=== PATIENT | female | born 1995 | race American Indian/Alaskan Native ===

== ENCOUNTER 2017-11-10 16:17 | Inpatient (IN) | payer MEDICAID ==
[2017-11-10] MEDS ORDERED: TRANSDERM-SCOP TD ONE (16:19)
[2017-11-10] MEDS ORDERED: ZOFRAN IV PRN (16:19)
[2017-11-10] MEDS ORDERED: D5LR 1,000 ML IV SCH (17:00)
[2017-11-10] MEDS: D5LR 1,000 ML IV SCH ×2 (18:37→20:29)
[2017-11-10] MEDS: PHENERGAN PR SCH ×2 (18:37→23:00)
[2017-11-10] MEDS: REGLAN IV SCH ×2 (18:37→23:53)
[2017-11-10 19:15] LABS: Bilirubin,Urine NEG (Negative); Blood,Urine NEG (Negative); Color,Urine Yellow (Yellow); Mucus,Urine 3+ /HPF
[2017-11-10 20:30] LABS: Basophils % (Auto) 0.1 % (0.0-1.8); Eosinophils # (Auto) 0.1 K/mm3 (0.0-0.4); Eosinophils % (Auto) 1.5 % (0.0-4.3); Hematocrit 38.2 % (30.3-42.9); Hemoglobin 12.4 gm/dl (10.1-14.3); Lymphocytes # (Auto) 2.2 K/mm3 (1.2-5.4); Lymphocytes % (Auto) 35.9 % (13.4-35.0); Mean Corpuscular HGB Conc 33 % (30-34); Mean Corpuscular Hemoglobin 27 pg (28-32); Mean Corpuscular Volume 82 fl (79-97); Monocytes # (Auto) 0.4 K/mm3 (0.0-0.8); Monocytes % (Auto) 6.6 % (0.0-7.3); Platelet Count 198 K/mm3 (140-440); Red Blood Count 4.68 M/mm3 (3.65-5.03); Red Cell Distribution Width 18.9 % (13.2-15.2)
[2017-11-10 20:47] LABS: BUN/Creatinine Ratio 10; Blood Urea Nitrogen 5 mg/dL (7-17); Calcium 9.4 mg/dL (8.4-10.2); Hemolysis Index 1
[2017-11-10 20:48] LABS: Lipase 23 units/L (13-60)
[2017-11-10 21:00] LABS: Hepatitis A Antibody IgM Non-Reactive (NonReactive); Hepatitis B Core IgM Non-Reactive (NonReactive); Hepatitis B Surface Antigen Non-Reactive (Negative); Hepatitis C Virus Antibody Non-Reactive (NonReactive)
[2017-11-11] MEDS ORDERED: D5LR W/KCL 20 MEQ 20 MEQ/1,000 ML BAG IV SCH (01:00)
[2017-11-11] MEDS: PHENERGAN PR SCH (05:00)
[2017-11-11] MEDS: REGLAN IV SCH (05:14)
--- NOTE | 2017-11-11 08:26 | Progress Note ---
Assessment and Plan A/P Hyperemesis gravidarum patient feels better today ( eating hamburgers last night) will switch from iv to po patient wants to go home reassess for discharge tonight or tomorrow Subjective - Subjective Date of service: 11/11/17 Principal diagnosis: hyperemesis graviadraum Patient reports: no new complaints, no loss of fluid, no vaginal bleeding, no contractions Objective - Vital Signs Vital Signs: Vital Signs - 12hr 11/10/17 11/11/17 20:40 00:14 Temperature 97.7 F 98.5 F Pulse Rate 85 83 Respiratory 18 18 Rate Blood Pressure 112/46 107/44 [Left] O2 Sat by Pulse 98 98 Oximetry - Exam Breasts: normal Cardiovascular: Regular rate, Normal S1 Lungs: Clear to auscultation, Normal air movement Abdomen: Present: normal appearance, soft, normal bowel sounds. Absent: distention, tenderness, guarding Vulva: both: normal Uterus: Present: normal, firm, fundal height below umbilicus. Absent: bogginess , tenderness Extremities: normal Deep Tendon Reflex Grade: Normal +2 - Labs Labs: Abnormal Labs 11/10/17 11/10/17 11/10/17 18:53 18:53 18:53 MCH 27 L RDW 18.9 H Lymph % (Auto) 35.9 H Potassium 3.3 L BUN 5 L Creatinine 0.5 L Glucose 117 H TSH 4.570 H Laboratory Results - last 24 hr 11/10/17 11/10/17 11/10/17 16:35 18:53 18:53 WBC 6.1 RBC 4.68 Hgb 12.4 Hct 38.2 MCV 82 MCH 27 L MCHC 33 RDW 18.9 H Plt Count 198 Lymph % (Auto) 35.9 H [place] % (Auto) 6.6 Eos % (Auto) 1.5 Baso % (Auto) 0.1 Lymph # 2.2 Leslie # 0.4 Eos # 0.1 Baso # 0.0 Seg Neutrophils % 55.9 Seg Neutrophils # 3.4 Sodium Potassium Chloride Carbon Dioxide Anion Gap BUN Creatinine Estimated GFR BUN/Creatinine Ratio Glucose Calcium Amylase 59 Lipase 23 TSH Urine Color Yellow Urine Turbidity Clear Urine pH 5.0 Ur Specific [place] 1.028 Urine Protein 30 mg/dl Urine Glucose (UA) Neg Urine Ketones Tr Urine Blood Neg Urine Nitrite Neg Urine Bilirubin Neg Urine Urobilinogen 2.0 Ur Leukocyte Esterase Neg Urine WBC (Auto) 2.0 Urine RBC (Auto) 1.0 U Epithel Cells (Auto) 3.0 Urine Mucus 3+ Hepatitis A IgM Ab Hep Bs Antigen Hep B Core IgM Ab Hepatitis C Antibody 11/10/17 11/10/17 11/10/17 18:53 18:53 18:53 WBC RBC Hgb Hct MCV MCH MCHC RDW Plt Count Lymph % (Auto) [place] % (Auto) Eos % (Auto) Baso % (Auto) Lymph # [place] # Eos # Baso # Seg Neutrophils % Seg Neutrophils # Sodium 139 Potassium 3.3 L Chloride 100.9 Carbon Dioxide 23 Anion Gap 18 BUN 5 L Creatinine 0.5 L Estimated GFR > 60 BUN/Creatinine Ratio 10 Glucose 117 H Calcium 9.4 Amylase Lipase TSH 4.570 H Urine Color Urine Turbidity Urine pH Ur Specific [place] Urine Protein Urine Glucose (UA) Urine Ketones Urine Blood Urine Nitrite Urine Bilirubin Urine Urobilinogen Ur Leukocyte Esterase Urine WBC (Auto) Urine RBC (Auto) U Epithel Cells (Auto) Urine Mucus Hepatitis A IgM Ab Non-reactive Hep Bs Antigen Non-reactive Hep B Core IgM Ab Non-reactive Hepatitis C Antibody Non-reactive
[2017-11-11] MEDS ORDERED: ZOFRAN ODT PO PRN (08:27)
[2017-11-11] MEDS ORDERED: PRENATAL VITAMIN PO SCH (10:00)
[2017-11-11] MEDS: PHENERGAN PO PRN ×2 (12:00→18:00)
[2017-11-11] MEDS: REGLAN PO PRN ×2 (12:00→18:00)
[2017-11-11 17:19] VITALS: BP 100/46
--- NOTE | 2017-11-11 18:51 | Discharge Summary ---
Providers - Providers Date of Admission: 11/10/17 16:49 Date of discharge: 11/11/17 Attending physician: ALEJANDRO RYDER MD Primary care physician: ALEJANDRO RYDER MD Hospitalization Reason for admission: other (Hyperemesis Gravidarum) Hospital course: Patient admitted for nausea and vomiting after 2 days if iv antiemetics switched to po , patient felt better. Patient able to tolerate her lunch andd dinner. d/c home to f/u in 2 weeks Condition at discharge: Good Disposition: [id number] TO HOME OR SELFCARE Plan - Provider Discharge Summary Activity: routine Diet: routine Instructions: routine Additional instructions: [] Smoking cessation referral if applicable(refer to patient education folder for contact #) [] Refer to [facility]'s [facility] Booklet Call your doctor immediately for: * Fever > 100.5 * Heavy vaginal bleeding ( >1 pad per hour) * Severe persistent headache * Shortness of breath * Reddened, hot, painful area to leg or breast * Drainage or odor from incision. * Keep incision clean and dry at all times and follow doctor's instructions regarding bathing/showering - Follow up plan Follow up: ALEJANDRO RYDER MD [Primary Care Provider] - 14 Days Forms: [facility] Discharge Summary, Discharge Signature Page
--- NOTE | 2017-11-11 20:20 | History and Physical Report ---
<ALEJANDRO RYDER - Last Filed: 11/11/17 20:19> History of Present Illness Date of examination: 11/11/17 Date of admission: 11/10/17 16:49 Chief complaint: nausea and vomiting Medications and Allergies Allergies Allergy/AdvReac Type Severity Reaction Status Date / Time No Known Allergies Allergy Unverified 11/10/17 16:19 Home Medications Medication Instructions Recorded Confirmed Last Taken Type No Known Home Medications [No 11/10/17 11/10/17 Unknown History Reported Home Medications] Active Meds: Active Medications Potassium Cl/Dextrose/Lact Ringer's (D5lr W/Kcl 20 Meq) 20 meq in 1,000 mls @ 125 mls/hr IV DIRECT DEVANG Last Admin: 11/11/17 00:58 Dose: 125 mls/hr Metoclopramide HCl (Reglan) 10 mg IV Q6H DEVANG Last Admin: 11/11/17 05:14 Dose: 10 mg Metoclopramide HCl (Reglan) 10 mg PO Q6H PRN PRN Reason: Nausea And Vomiting Last Admin: 11/11/17 18:00 Dose: 10 mg Multivitamins/Iron/Calcium ( Vitamin) 1 each PO QDAY [facility] Ondansetron HCl (Zofran) 4 mg IV Q6H PRN PRN Reason: N/V unrelieved by Reglan Ondansetron HCl (Zofran Odt) 8 mg PO Q8H PRN PRN Reason: Nausea And Vomiting Promethazine HCl (Phenergan) 25 mg VT Q6H DEVANG Last Admin: 11/11/17 05:00 Dose: Not Given Promethazine HCl (Phenergan) 25 mg PO Q6H PRN PRN Reason: Nausea And Vomiting Last Admin: 11/11/17 18:00 Dose: 25 mg - Vital Signs Vital signs: Vital Signs Temp Pulse Resp BP Pulse Ox 97.4 F L 85 18 102/61 100 11/10/17 17:21 11/10/17 17:21 11/10/17 17:21 11/10/17 17:21 11/10/17 17:21 Temp Pulse Resp BP Pulse Ox 98.5 F 74 18 100/46 98 11/11/17 16:45 11/11/17 16:45 11/11/17 16:45 11/11/17 16:45 11/11/17 00:14 Results Result Diagrams: 11/10/17 18:53 11/11/17 08:23 Abnormal lab results 11/10/17 11/10/17 11/10/17 Range/Units 18:53 18:53 18:53 MCH 27 L (28-32) pg RDW 18.9 H (13.2-15.2) % Lymph % (Auto) 35.9 H (13.4-35.0) % Potassium 3.3 L (3.6-5.0) mmol/L BUN 5 L (7-17) mg/dL Creatinine 0.5 L (0.7-1.2) mg/dL Glucose 117 H (65-100) mg/dL TSH 4.570 H (0.270-4.200) mlU/mL All other labs normal. <JAYDEN JO - Last Filed: 11/12/17 08:27> History of Present Illness Date of admission: 11/10/17 16:49 History of present illness: 22 yo @ 12 weeks gestation presented to office with c/o N/v x 24hrs. Tolerating regular diet. Voiced ate encinas this am. Ketone 5+ No weight loss. Taking Zofran currently. No previous treatment for c/o Past History Past Medical History: no pertinent history Review of Systems Constitutional: weight loss, fatigue, weakness, malaise - Vital Signs Vital signs: Vital Signs Temp Pulse Resp BP Pulse Ox 97.4 F L 85 18 102/61 100 11/10/17 17:21 11/10/17 17:21 11/10/17 17:21 11/10/17 17:21 11/10/17 17:21 Temp Pulse Resp BP Pulse Ox 98.5 F 74 18 100/46 98 11/11/17 16:45 11/11/17 16:45 11/11/17 16:45 11/11/17 16:45 11/11/17 00:14 - Obstetrical FHR comments: Doppler FHT in office 150 Results Result Diagrams: 11/10/17 18:53 11/11/17 08:23 All other labs normal. Assessment and Plan A: IUP at 12 weeks nausea and vomiting P: IV hydration
== END 2017-11-11 19:10 | disposition home or self-care (01) | DRG 781 ==
LOC: UNDOADMIN 16:17 → 3A 16:17 → OB 16:49
PROVIDERS: ADMIT Obstetrics & Gynecology; ATTEND Obstetrics & Gynecology
DX: O21.0 Mild hyperemesis gravidarum (principal); Z3A.12 12 weeks gestation of pregnancy
CPT/HCPCS: 36415; 80048; 80074; 81001; 82010; 82150; 83690; 84132; 84443; 85025; J2765; J7120; J7121; Q0169

== ENCOUNTER 2018-05-14 11:00 | Outpatient (CLI) | payer MEDICAID ==
[2018-05-14 12:25] LABS: Bacteria,Urine 1+ /HPF (Negative); Bilirubin,Urine NEG (Negative); Blood,Urine NEG (Negative); Color,Urine Yellow (Yellow); Mucus,Urine FEW /HPF; Protein,Urine <15 mg/dL mg/dL (Negative); Urobilinogen,Urine < 2.0 mg/dL (<2.0)
[2018-05-14 13:27] VITALS: BP 131/79
[2018-05-14 13:54] LABS: Hematocrit 38.6 % (30.3-42.9); Hemoglobin 13.1 gm/dl (10.1-14.3); Mean Corpuscular HGB Conc 34 % (30-34); Mean Corpuscular Volume 88 fl (79-97); Platelet Count 143 K/mm3 (140-440); Red Blood Count 4.41 M/mm3 (3.65-5.03)
[2018-05-14 14:15] LABS: Alanine Aminotransferase 12 units/L (7-56); Uric Acid 5.1 mg/dL (3.5-7.6)
== END 2018-05-14 14:24 | disposition home or self-care (01) ==
LOC: TRG 11:00
PROVIDERS: ATTEND Obstetrics & Gynecology
DX: O47.1 False labor at or after 37 completed weeks of gestation (principal); Z3A.39 39 weeks gestation of pregnancy; Z87.891 Personal history of nicotine dependence
CPT/HCPCS: 36415; 59025; 81001; 82565; 83615; 84450; 84460; 84550; 85027

== ENCOUNTER 2018-05-20 14:30 | Inpatient (IN) | payer MEDICAID ==
[2018-05-20 15:27] LABS: Bacteria,Urine 2+ /HPF (Negative); Bilirubin,Urine NEG (Negative); Blood,Urine LG (Negative); Color,Urine Yellow (Yellow); Protein,Urine <15 mg/dL mg/dL (Negative); Urobilinogen,Urine < 2.0 mg/dL (<2.0)
[2018-05-20 16:24] LABS: Hematocrit 36.9 % (30.3-42.9); Hemoglobin 12.3 gm/dl (10.1-14.3); Mean Corpuscular HGB Conc 33 % (30-34); Mean Corpuscular Volume 88 fl (79-97); Platelet Count 149 K/mm3 (140-440); Red Blood Count 4.17 M/mm3 (3.65-5.03); Red Cell Distribution Width 14.8 % (13.2-15.2)
[2018-05-20 16:41] LABS: Uric Acid 6.1 mg/dL (3.5-7.6)
[2018-05-20 17:03] LABS: Alanine Aminotransferase < 5 units/L (7-56)
[2018-05-20] MEDS ORDERED: TYLENOL PO ONE (17:29)
[2018-05-20] MEDS ORDERED: AMPICILLIN/NS 2 GM/100 ML 2 GM/100 ML BAG IV ONE (18:43)
[2018-05-20] MEDS ORDERED: CERVIDIL VG ONE (18:43)
[2018-05-20] MEDS ORDERED: XYLOCAINE 2% INFILTRATI ONE (18:43)
[2018-05-20] MEDS ORDERED: BRETHINE SUB-Q PRN (18:43)
[2018-05-20] MEDS ORDERED: BRETHINE IVP PRN (18:43)
[2018-05-20] MEDS ORDERED: ZOFRAN IV PRN (18:43)
[2018-05-20] MEDS ORDERED: SUBLIMAZE IV PRN (18:43)
[2018-05-20] MEDS ORDERED: MINERAL OIL PO PRN (18:43)
--- NOTE | 2018-05-20 18:43 | History and Physical Report ---
History of Present Illness Date of examination: 05/20/18 Chief complaint: Headaches History of present illness: Pt is a 23yo BF EDC 05/21/18; EGA 39 6/7 weeks presents to L&D complaining of headaches and blurred vision. BP 143/81. This is her 3rd presentation to Triage with complaints of elevated BP's. She was a late transfer to [facility] at 39 weeks from [facility]. records are not available. 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 Family/Genetic History: none Social history: no significant social history, single - Obstetrical History Expected Date of Delivery: 05/21/18 Actual Gestation: 40 Week(s) 1 Day(s) : 2 Medications and Allergies Allergies Allergy/AdvReac Type Severity Reaction Status Date / Time No Known Allergies Allergy Verified 05/06/18 11:42 Home Medications Medication Instructions Recorded Confirmed Last Taken Type Pnv No.95/Ferrous Fum/Folic AC 1 tab PO QDAY 05/20/18 05/20/18 05/19/18 10:00 History [ Vitamins Tablet] valACYclovir [Valtrex] 1 tab PO QDAY 05/20/18 05/20/18 05/19/18 10:00 History Review of Systems All systems: negative - Vital Signs Vital signs: Vital Signs Pulse BP Pulse Ox 107 H 143/81 99 05/20/18 15:04 05/20/18 15:04 05/20/18 15:04 Temp Pulse Resp BP Pulse Ox 85 154/85 98 05/20/18 18:15 05/20/18 18:08 05/20/18 18:15 - Physical Exam Breasts: Positive: deferred Cardiovascular: Regular rate Lungs: Positive: Clear to auscultation Abdomen: Positive: normal appearance Genitourinary (Female): Positive: normal external genitalia Uterus: Positive: enlarged Extremities: Positive: edema - Obstetrical FHR: category 1 Uterine Contraction Monitor Mode: External Cervical Dilatation: 1 (per nurse) Cervical Effacement Percentage: 50 (per nurse) station: -2 Uterine Contraction Pattern: Irregular Uterine Tone Measurement Phase: Contraction Uterine Contraction Intensity: Mild Results Result Diagrams: 05/20/18 16:10 05/20/18 16:10 Abnormal lab results 05/20/18 05/20/18 Range/Units 15:00 16:10 ALT < 5 L (7-56) units/L Lactate Dehydrogenase 242 H (91-180) units/L Urine WBC (Auto) 9.0 H (0.0-6.0) /HPF All other labs normal. Assessment and Plan - Patient Problems (1) 39 weeks gestation of Onset Date: 05/20/18 Current Visit: Yes Status: Acute Plan to address problem: A: IUP @ 39 6/7 weeks PIH Unknown GBS P: Admit to L&D for cervidil/pitocin induction of labor IV Hydralazine, possible IV Magnesium sulfate IV Ampicillin Obtain records (2) PIH ( induced hypertension) Onset Date: 05/20/18 Current Visit: Yes Status: Acute Qualifiers: Trimester: third trimester Qualified Code(s): O13.3 - Gestational [-induced] hypertension without significant proteinuria, third t rimester
[2018-05-20] MEDS ORDERED: APRESOLINE IV PRN (18:47)
[2018-05-20] MEDS ORDERED: PITOCin/NS 20 UNIT/1000ML DRIP 20 UNITS/1,000 ML BAG IV SCH (19:00)
[2018-05-20] MEDS ORDERED: PITOCin/NS 30 UNIT/500ML 30 UNITS/500 ML BAG IV SCH ×2 (19:00)
[2018-05-20] MEDS: LACTATED RINGERS 1,000 ML IV SCH (20:18)
[2018-05-20] MEDS: STADOL IV PRN (23:55)
[2018-05-21] MEDS: AMPICILLIN/NS 1 GM/50 ML 1 GM/50 ML BAG IV SCH ×3 (01:01→10:40)
[2018-05-21] MEDS: LACTATED RINGERS 1,000 ML IV SCH (03:39)
--- NOTE | 2018-05-21 11:15 | Progress Note ---
Assessment and Plan - Patient Problems (1) 39 weeks gestation of Onset Date: 05/20/18 Current Visit: Yes Status: Acute Plan to address problem: A: IUP @ 40 0/7 weeks PIH Unknown GBS P: Continue with cervidil/pitocin induction of labor IV Hydralazine, possible IV Magnesium sulfate IV Ampicillin Obtain records (2) PIH ( induced hypertension) Onset Date: 05/20/18 Current Visit: Yes Status: Acute Qualifiers: Trimester: third trimester Qualified Code(s): O13.3 - Gestational [-induced] hypertension without significant proteinuria, third trimester Subjective - Subjective Date of service: 05/21/18 Principal diagnosis: IUP @ 40 0/7 weeks; PIH Interval history: Pt is a 23yo BF EDC 05/21/18; EGA 40 0/7 weeks presented to L&D for cervidil induction of labor. She received cervidil last night and is currently rosi q 2-3 mins on pitocin 2mu/min. Patient reports: movement normal, contractions, no new complaints, no loss of fluid, no vaginal bleeding Objective - Vital Signs Vital Signs: Vital Signs - 12hr 05/20/18 05/20/18 05/20/18 23:12 23:42 23:55 Temperature Pulse Rate 94 H 100 H Respiratory 18 Rate Blood Pressure 134/85 133/79 05/21/18 05/21/18 05/21/18 00:11 00:41 01:12 Temperature Pulse Rate 111 H 108 H 106 H Respiratory Rate Blood Pressure 127/68 125/59 128/65 05/21/18 05/21/18 05/21/18 01:42 02:26 03:03 Temperature Pulse Rate 102 H 103 H 105 H Respiratory Rate Blood Pressure 135/79 144/65 138/61 05/21/18 05/21/18 05/21/18 03:41 04:12 04:41 Temperature Pulse Rate 93 H 108 H 103 H Respiratory Rate Blood Pressure 131/60 127/59 123/75 05/21/18 05/21/18 05/21/18 05:12 05:42 06:12 Temperature Pulse Rate 106 H 102 H 100 H Respiratory Rate Blood Pressure 124/74 133/72 131/71 05/21/18 05/21/18 05/21/18 06:43 07:11 07:54 Temperature 98.6 F Pulse Rate 110 H 103 H Respiratory Rate Blood Pressure 131/69 130/70 05/21/18 05/21/18 08:12 09:11 Temperature Pulse Rate 98 H 103 H Respiratory Rate Blood Pressure 129/72 125/70 - Exam Abdomen: Present: normal appearance, soft Uterus: Present: normal FHR: category 1 Uterine Contraction Monitor Mode: External Cervical Dilatation: 1 (per nurse) Cervical Effacement Percentage: 60 (per nurse) station: -3 Uterine Contraction Pattern: Regular Uterine Tone Measurement Phase: Contraction Uterine Contraction Intensity: Moderate - Labs Labs: Abnormal Labs 05/20/18 05/20/18 15:00 16:10 ALT < 5 L Lactate Dehydrogenase 242 H Urine WBC (Auto) 9.0 H Laboratory Results - last 24 hr 05/20/18 05/20/18 05/20/18 15:00 16:10 16:10 WBC 6.1 RBC 4.17 Hgb 12.3 Hct 36.9 MCV 88 MCH 29 MCHC 33 RDW 14.8 Plt Count 149 Creatinine 0.7 Estimated GFR > 60 Uric Acid 6.1 AST 24 ALT < 5 L Lactate Dehydrogenase 242 H Urine Color Yellow Urine Turbidity Clear Urine pH 6.0 Ur Specific [place] 1.005 Urine Protein <15 mg/dl Urine Glucose (UA) 50 Urine Ketones Neg Urine Blood Lg Urine Nitrite Neg Urine Bilirubin Neg Urine Urobilinogen < 2.0 Ur Leukocyte Esterase Lg Urine WBC (Auto) 9.0 H Urine RBC (Auto) 12.0 U Epithel Cells (Auto) 5.0 Urine Bacteria (Auto) 2+ Blood Type Antibody Screen 05/20/18 19:00 WBC RBC Hgb Hct MCV MCH MCHC RDW Plt Count Creatinine Estimated GFR Uric Acid AST ALT Lactate Dehydrogenase Urine Color Urine Turbidity Urine pH Ur Specific [place] Urine Protein Urine Glucose (UA) Urine Ketones Urine Blood Urine Nitrite Urine Bilirubin Urine Urobilinogen Ur Leukocyte Esterase Urine WBC (Auto) Urine RBC (Auto) U Epithel Cells (Auto) Urine Bacteria (Auto) Blood Type AB POSITIVE Antibody Screen Negative
[2018-05-21] MEDS: STADOL IV PRN (17:41)
[2018-05-21] MEDS ORDERED: NARCAN 2 MG/2 ML IV PRN (19:58)
--- NOTE | 2018-05-21 20:34 | Anesthesia Consultation ---
Anesthesia Consult and Med Hx Date of service: 05/21/18 - Airway Anesthetic Teeth Evaluation: Good ROM Head & Neck: Adequate Mental/Hyoid Distance: Adequate Mallampati Class: Class III Intubation Access Assessment: Possibly Difficult - Pulmonary Exam CTA: Yes - Cardiac Exam Cardiac Exam: RRR - Pre-Operative Health Status ASA Pre-Surgery Classification: ASA3 Proposed Anesthetic Plan: Epidural - Pulmonary Hx Smoking: No Hx Asthma: No Hx Respiratory Symptoms: No - Cardiovascular System Hx Hypertension: Yes (PIH) Hx Heart Attack/AMI: No - Central Nervous System Hx Neuromuscular Disorder: No Hx Seizures: No CVA: No - Endocrine Hx Renal Disease: No Hx Liver Disease: No Hx Insulin Dependent Diabetes: No Hx Non-Insulin Dependent Diabetes: No Hx Thyroid Disease: No - Other Systems Hx Obesity: Yes - Additional Comments Anesthesia Medical History Comments: No prior epidurals.
[2018-05-21] MEDS: fentaNYL-BUPIV 2 MCG/ML-0.125% 200 MCG/100 ML BAG EPIDURAL SCH (21:00)
[2018-05-22] MEDS ORDERED: XYLOCAINE 2%/ EPI 1:200,000 INFILTRATI ONE ×2 (02:28→05:16)
[2018-05-22] MEDS: fentaNYL-BUPIV 2 MCG/ML-0.125% 200 MCG/100 ML BAG EPIDURAL SCH (02:53)
[2018-05-22] MEDS ORDERED: REGLAN IV ONE (04:55)
[2018-05-22] MEDS ORDERED: PEPCID IV ONE (04:55)
[2018-05-22] MEDS ORDERED: BICITRA PO ONE (04:55)
[2018-05-22] MEDS ORDERED: PITOCin/NS 20 UNIT/1000ML DRIP 20 UNITS/1,000 ML BAG IV SCH ×2 (05:00→07:00)
[2018-05-22] MEDS ORDERED: ANCEF/STERILE WATER 2 GM/20 ML 2 GM/20 ML SYRINGE IV NR (05:00)
[2018-05-22] MEDS ORDERED: LACTATED RINGERS 1,000 ML IV SCH (05:00)
[2018-05-22] MEDS ORDERED: ASTRAMORPH PF 10MG/10ML ONE (05:27)
[2018-05-22] MEDS ORDERED: WATER FOR IRRIG STERILE IR ONE (05:31)
[2018-05-22] MEDS ORDERED: NACL 0.9% IR ONE (05:31)
[2018-05-22] MEDS ORDERED: NEO SYNEPHRINE/NS Syringe(OR USE) IV ONE (05:35)
--- NOTE | 2018-05-22 06:27 | Operative Report ---
Operative Report Operative Report: Date of procedure: 05/22/2018 Pre-operative diagnosis: 1. Intrauterine at 40-1/7 weeks 2. Pregna ncy-induced hypertension 3. Failed induction of labor 4. Failure to progress Post-operative diagnosis: Same Procedure name(s): Primary low transverse section Surgeon: Reynaldo Rivera MD Brancher: None Anesthesia: Epidural anesthesia by Dr. Levi EBL: 550 mL's Findings: A 3804 g male Apgars 8 at 1 minute and 9 at 5. Clear amniotic fluid. Normal uterus. Normal tubes and ovaries bilaterally. Procedure: After the patient was prepped and draped in usual sterile fashion, and after satisfactory level of epidural anesthesia was obtained, the skin knife was used to make a transverse skin incision. The incision was excised down to layer of the fascia, which was nicked in the midline and extended laterally using the Bovie cautery. The rectus muscles were dissected off the rectus fascia both superiorly and inferiorly. The rectus bellies in the midline, and the peritoneum was entered under direct visualization. The peritoneal incision was extended superiorly and inferiorly. A bladder flap was created and the bladder blade was then placed. The uterus was scored in a curvilinear linear fashion, entered in the midline revealing clear amniotic fluid. The 's head was delivered onto the surgical field, and the oropharynx and nasopharynx were bulb suctioned. The rest of the 's body was delivered, cord was doubly clamped and cut and the infant was handed to the waiting respiratory team. The placenta was manually removed from the uterus, and the uterus removed from its normal anatomical position. After gentle uterine lavage, the incision was inspected and found to be without extensions. It was then closed in 2 layers using 0 Vicryl suture in a running interlocking fashion, the second layer imbricating the first. After good hemostasis was achieved, copious amounts or irrigation was performed, and the gutters were suctioned free of blood and blood clots. Tisseel sealant was sprayed across the uterine incision. The uterus was then returned to its normal anatomical position, and after excellent hemostasis assured, the peritoneum was re- approximated using 3-0 Vicryl suture in a running interlocking fashion, and then the rectus muscles were re-approximated using 3-0 Vicryl suture in a [id number] configuration. The fascia was then re-approximated using 0 Vicryl suture in running interlocking fashion. The subcutaneous layer was made hemostatic using Bovie cautery, the Tisseel sealant was sprayed across the fascial incision and the skin edges re-approximated using 4-0 Vicryl suture in a sub-cuticular fashion. Patient tolerated the procedure well was transported to recovery in stable condition.
[2018-05-22] MEDS ORDERED: LANSINOH TP PRN (06:34)
[2018-05-22] MEDS ORDERED: TUCKS PAD TP PRN (06:34)
[2018-05-22] MEDS ORDERED: MILK OF MAGNESIA PO PRN (06:34)
[2018-05-22] MEDS ORDERED: PERCOCET 5/325 PO PRN (06:34)
[2018-05-22] MEDS ORDERED: NORCO 5/325 PO PRN (06:34)
[2018-05-22] MEDS ORDERED: SENOKOT PO PRN (06:34)
[2018-05-22] MEDS ORDERED: TYLENOL PO PRN (06:34)
[2018-05-22] MEDS ORDERED: NARCAN 0.4 MG/1 ML IV PRN ×2 (06:34→06:51)
[2018-05-22] MEDS ORDERED: TORADOL IV PRN ×2 (06:34→06:53)
[2018-05-22] MEDS ORDERED: BENADRYL IV PRN (06:51)
[2018-05-22] MEDS ORDERED: ZOFRAN IV PRN (06:51)
[2018-05-22] MEDS ORDERED: DILAUDID IV PRN (06:51)
--- NOTE | 2018-05-22 06:54 | Anesthesia Day of Surgery ---
Anesthesia Day of Surgery - Day of Surgery Patient Examined: Yes Patient H&P Reviewed: Yes Patient is NPO: Yes
--- NOTE | 2018-05-22 06:54 | Post Anesthesia Evaluation ---
- Post Anesthesia Evaluation Patient Participated: Yes Airway Patent: Yes Stable Respiratory Function: Yes Nausea/Vomiting: No Temp > 96.8F: Yes Pain Manageable: Yes Adequeate Hydration: Yes Anesthesia Complications: No Block Receding Appropriately: Yes Patient on Ventilator: No
[2018-05-22] MEDS ORDERED: D5LR 1,000 ML IV SCH (07:00)
[2018-05-22] MEDS ORDERED: SODIUM CHLORIDE FLUSH SYRINGE 10 ML IV NR ×2 (07:00)
[2018-05-22] MEDS: PRENATAL VITAMIN PO SCH (10:03)
[2018-05-22] MEDS: FEOSOL PO SCH (10:30)
[2018-05-22] MEDS: ANCEF/NS 1 GM/50 ML 1 GM/50 ML BAG IV SCH ×2 (14:56→21:46)
[2018-05-22 22:00] LABS: Hematocrit 24.9 % (30.3-42.9); Hemoglobin 8.4 gm/dl (10.1-14.3)
[2018-05-22] MEDS: IBUPROFEN PO PRN (23:57)
[2018-05-23 05:36] LABS: Hematocrit 22.7 % (30.3-42.9); Hemoglobin 7.6 gm/dl (10.1-14.3)
[2018-05-23] MEDS: IBUPROFEN PO PRN ×3 (05:43→23:20)
[2018-05-23] MEDS ORDERED: BOOSTRIX IM ONE (06:00)
[2018-05-23] MEDS ORDERED: M-M-R II VACCINE SUB-Q ONE (06:00)
[2018-05-23] MEDS: PRENATAL VITAMIN PO SCH (10:05)
[2018-05-23] MEDS: FEOSOL PO SCH (10:05)
[2018-05-23] MEDS: MYLICON PO PRN ×2 (10:06→23:20)
--- NOTE | 2018-05-23 12:32 | Progress Note ---
Assessment and Plan - Patient Problems (1) 39 weeks gestation of Onset Date: 05/20/18 Current Visit: Yes Status: Resolved (2) PIH ( induced hypertension) Onset Date: 05/20/18 Current Visit: Yes Status: Resolved Qualifiers: Trimester: third trimester Qualified Code(s): O13.3 - Gestational [-induced] hypertension without significant proteinuria, third trimester (3) Status post Onset Date: 05/23/18 Current Visit: Yes Status: Resolved Plan to address problem: A: S/P C Section - POD #1 Acute blood loss anemia - stable P: Continue RPOC Anticipate discharge in 24-48hrs (4) Acute blood loss anemia Onset Date: 05/23/18 Current Visit: Yes Status: Resolved Subjective - Subjective Date of service: 05/23/18 Principal diagnosis: s/p C Section - POD #1 Interval history: Pt is feeling well without complaints. Bleeding improved. She is tolerating a reg diet without nausea or vomiting, ambulating and voiding without difficulty. Patient reports: appetite normal, voiding normally, pain well controlled, flatus, bowel movement, ambulating normally, no dizzy ambulation, no nauseated [place]: doing well, bottle feeding Objective - Vital Signs Latest vital signs: Vital Signs Temp Pulse Resp BP Pulse Ox 05/23/18 11:22 97.4 F L 101 H 19 115/63 05/23/18 07:20 97.5 F L 99 H 18 101/52 05/23/18 06:43 18 05/23/18 05:43 18 05/23/18 00:57 18 05/22/18 23:57 18 05/22/18 23:30 98.6 F 74 18 118/61 05/22/18 22:33 118 H 20 123/78 100 05/22/18 19:30 98.7 F 72 16 108/66 05/22/18 15:40 98 F 102 H 18 124/52 Intake and Output 05/22/18 05/23/18 05/23/18 22:59 06:59 14:59 Intake Total 1050 120 Output Total 1700 Balance -650 120 Intake: IV 50 ANCEF/NS 1 GM/50 ML 1 gm 50 In 50 ml @ 100 mls/hr IV Q8H [facility] Rx#:[id number] Oral 760 Intake, Free Water 240 120 Output: Urine 1700 Indwelling Catheter 1100 Void 600 Other: Total, Intake Amount 400 Total, Output Amount 450 # Voids Void 1 1 # Bowel Movements 1 - Exam Breasts: Present: deferred Abdomen: Present: normal appearance, soft Uterus: Present: normal, firm, fundal height below umbilicus Extremities: Present: normal Incision: Present: normal, dry, intact, dressed - Labs Labs: Abnormal lab results 05/22/18 05/23/18 Range/Units 21:28 05:24 Hgb 8.4 L D 7.6 L (10.1-14.3) gm/dl Hct 24.9 L D 22.7 L (30.3-42.9) % Laboratory Tests 05/20/18 05/20/18 05/20/18 15:00 16:10 16:10 WBC 6.1 RBC 4.17 Hgb 12.3 Hct 36.9 MCV 88 MCH 29 MCHC 33 RDW 14.8 Plt Count 149 Creatinine 0.7 Estimated GFR > 60 Uric Acid 6.1 AST 24 ALT < 5 L Lactate Dehydrogenase 242 H Urine Color Yellow Urine Turbidity Clear Urine pH 6.0 Ur Specific [place] 1.005 Urine Protein <15 mg/dl Urine Glucose (UA) 50 Urine Ketones Neg Urine Blood Lg Urine Nitrite Neg Urine Bilirubin Neg Urine Urobilinogen < 2.0 Ur Leukocyte Esterase Lg Urine WBC (Auto) 9.0 H Urine RBC (Auto) 12.0 U Epithel Cells (Auto) 5.0 Urine Bacteria (Auto) 2+ RPR Blood Type Antibody Screen 05/20/18 05/20/18 05/22/18 19:00 19:00 21:28 WBC RBC Hgb 8.4 L D Hct 24.9 L D MCV MCH MCHC RDW Plt Count Creatinine Estimated GFR Uric Acid AST ALT Lactate Dehydrogenase Urine Color Urine Turbidity Urine pH Ur Specific [place] Urine Protein Urine Glucose (UA) Urine Ketones Urine Blood Urine Nitrite Urine Bilirubin Urine Urobilinogen Ur Leukocyte Esterase Urine WBC (Auto) Urine RBC (Auto) U Epithel Cells (Auto) Urine Bacteria (Auto) RPR Nonreactive Blood Type AB POSITIVE Antibody Screen Negative 05/23/18 05:24 WBC RBC Hgb 7.6 L Hct 22.7 L MCV MCH MCHC RDW Plt Count Creatinine Estimated GFR Uric Acid AST ALT Lactate Dehydrogenase Urine Color Urine Turbidity Urine pH Ur Specific [place] Urine Protein Urine Glucose (UA) Urine Ketones Urine Blood Urine Nitrite Urine Bilirubin Urine Urobilinogen Ur Leukocyte Esterase Urine WBC (Auto) Urine RBC (Auto) U Epithel Cells (Auto) Urine Bacteria (Auto) RPR Blood Type Antibody Screen
--- NOTE | 2018-05-24 09:19 | Progress Note ---
Assessment and Plan - Patient Problems (1) 39 weeks gestation of Onset Date: 05/20/18 Current Visit: Yes Status: Resolved (2) PIH ( induced hypertension) Onset Date: 05/20/18 Current Visit: Yes Status: Resolved Qualifiers: Trimester: third trimester Qualified Code(s): O13.3 - Gestational [-induced] hypertension without significant proteinuria, third trimester (3) Status post Onset Date: 05/23/18 Current Visit: Yes Status: Resolved Plan to address problem: A: S/P C Section - POD #2 Acute blood loss anemia - stable P: May go home today. (4) Acute blood loss anemia Onset Date: 05/23/18 Current Visit: Yes Status: Resolved Subjective - Subjective Date of service: 05/24/18 Principal diagnosis: s/p C Section - POD #2 Interval history: Pt is feeling well without complaints. Bleeding improved. She is tolerating a reg diet without nausea or vomiting, ambulating and voiding without difficulty. Patient reports: appetite normal, voiding normally, pain well controlled, flatus, bowel movement, ambulating normally, no dizzy ambulation, no nauseated [place]: doing well, bottle feeding Objective - Vital Signs Latest vital signs: Vital Signs Temp Pulse Resp BP Pulse Ox 05/24/18 07:36 97.6 F 103 H 17 117/69 99 05/24/18 05:30 18 05/23/18 23:30 98.4 F 74 18 102/68 05/23/18 23:20 18 05/23/18 17:40 97.9 F 118 H 20 122/69 05/23/18 11:22 97.4 F L 101 H 19 115/63 Intake and Output 05/23/18 05/24/18 05/24/18 22:59 06:59 14:59 Intake Total 480 300 Output Total 600 Balance -120 300 Intake: Oral 480 Intake, Free Water 300 Output: Urine 600 Void 600 Other: Total, Intake Amount 480 Total, Output Amount 600 1 # Voids Void 2 1 # Bowel Movements 0 - Exam Abdomen: Present: normal appearance, soft Uterus: Present: normal, firm, fundal height below umbilicus Extremities: Present: normal Incision: Present: normal, dry, intact
--- NOTE | 2018-05-24 09:47 | Discharge Summary ---
Providers - Providers Date of Admission: 05/20/18 18:45 Date of discharge: 05/24/18 Attending physician: LUDY RYDER Primary care physician: LUDY RYDER Hospitalization Reason for admission: induction of labor, IUP at term Delivery: Procedure: section, primary low transverse Laceration: none Incision: normal, dry, intact Other procedures: none complications: none Discharge diagnosis: IUP at term delivered [place] baby: male Hospital course: Pt is a 23yo BF EDC 05/21/18; EGA 39 6/7 weeks who presented to L&D compla ining of headaches and blurred vision. BP 143/81. This was her 3rd presentation to Triage with complaints of elevated BP's. She was a late transfer to [facility] at 39 weeks from [facility] [employer]. She was admitted and received cervidil followed by pitocin, but failed to progress in labor past 2cms. She was therefore delivered by uncomplicated C Section. Post operative course was unremarkable, and by POD #2 she was tolerating a reg diet without nausea or vomiting, ambulating and voiding without difficulty. She was therefore discharged to home on POD #2 in stable condition. Condition at discharge: Good Disposition: DC-01 TO HOME OR SELFCARE - Discharge Diagnoses (1) 39 weeks gestation of Status: Resolved (2) PIH ( induced hypertension) Status: Resolved Qualifiers: Trimester: third trimester Qualified Code(s): O13.3 - Gestational [-induced] hypertension without significant proteinuria, third trimester (3) Status post Status: Resolved (4) Acute blood loss anemia Status: Resolved Plan - Discharge Medications Prescriptions: Ferrous Sulfate [Feosol 325 MG tab] 325 mg PO QDAY #60 tablet HYDROcodone/APAP 5-325 [[place] 5-325 mg TAB] 1 each PO Q6HR PRN #30 tablet PRN Reason: Pain, Moderate (4-6) Ibuprofen [Motrin 800 MG tab] 800 mg PO Q6H PRN #30 tablet PRN Reason: Pain, Mild (1-3) Vit-Fe Fumar-FA [ Vitamin] 1 each PO QDAY #30 tablet - Provider Discharge Summary Activity: routine, no sex for 6 weeks, no heavy lifting 4 weeks, no strenuous exercise Diet: routine Instructions: routine Additional instructions: [] Smoking cessation referral if applicable(refer to patient education folder for contact #) [] Refer to [facility] Book[facility] Call your doctor immediately for: * Fever > 100.5 * Heavy vaginal bleeding ( >1 pad per hour) * Severe persistent headache * Shortness of breath * Reddened, hot, painful area to leg or breast * Drainage or odor from incision. * Keep incision clean and dry at all times and follow doctor's instructions regarding bathing/showering - Follow up plan Follow up: JAZMIN DAIGLE CNM [Advanced Practice Nurse] - 14 Days LUDY RYDER MD [Primary Care Provider] - 14 Days
[2018-05-24] MEDS: PRENATAL VITAMIN PO SCH (10:16)
[2018-05-24] MEDS: FEOSOL PO SCH (10:16)
[2018-05-24 13:03] VITALS: BP 128/84
== END 2018-05-24 14:10 | disposition home or self-care (01) | DRG 765 ==
LOC: TRG 14:30 → LD 18:45 → OB 05-22 08:36
PROVIDERS: ADMIT Obstetrics & Gynecology; ATTEND Obstetrics & Gynecology
PROC: 3E0P7VZ Introduction of Hormone into Female Reproductive, Via Natural or Artificial Opening (ICD-10-PCS; 2018-05-20)
PROC: 3E033VJ Introduction of Other Hormone into Peripheral Vein, Percutaneous Approach (ICD-10-PCS; 2018-05-20)
PROC: 10D00Z1 Extraction of Products of Conception, Low, Open Approach (ICD-10-PCS; principal; 2018-05-22)
PROC: 3E0234Z Introduction of Serum, Toxoid and Vaccine into Muscle, Percutaneous Approach (ICD-10-PCS; 2018-05-23)
DX: O13.4 Gestational [pregnancy-induced] hypertension without significant proteinuria, complicating childbirth (principal); D62 Acute posthemorrhagic anemia; Z37.0 Single live birth; O90.81 Anemia of the puerperium; O99.214 Obesity complicating childbirth; E66.9 Obesity, unspecified; O62.0 Primary inadequate contractions; Z3A.39 39 weeks gestation of pregnancy; Z23 Encounter for immunization; O61.0 Failed medical induction of labor
CPT/HCPCS: 36415; 59200; 81001; 82565; 83615; 84450; 84460; 84550; 85014; 85018; 85027; 86592; 86850; 86900; 86901; G0378; C9250; J0290; J0595; J0690; J1885; J2274; J2370; J2405; J2590; J2765; J7120; J7121

== ENCOUNTER 2018-06-16 07:59 | Outpatient (CLI) | payer MEDICAID ==
[2018-06-16] MEDS ORDERED: XYLOCAINE TOPICAL 4% TP NR (08:28)
== END 2018-06-16 08:00 | disposition home or self-care (01) ==
LOC: WOUND 07:59
PROVIDERS: ATTEND Surgery
DX: T81.31XD Disruption of external operation (surgical) wound, not elsewhere classified, subsequent encounter (principal); Z87.891 Personal history of nicotine dependence; Y83.8 Other surgical procedures as the cause of abnormal reaction of the patient, or of later complication, without mention of misadventure at the time of the procedure
CPT/HCPCS: 11042; G0463; 99214

== ENCOUNTER 2018-06-23 08:02 | Outpatient (CLI) | payer MEDICAID ==
[2018-06-23] MEDS ORDERED: XYLOCAINE TOPICAL 4% TP ONE (08:09)
== END 2018-06-23 08:03 | disposition home or self-care (01) ==
LOC: WOUND 08:02
PROVIDERS: ATTEND Surgery
DX: T81.31XD Disruption of external operation (surgical) wound, not elsewhere classified, subsequent encounter (principal); Z87.891 Personal history of nicotine dependence; Y83.8 Other surgical procedures as the cause of abnormal reaction of the patient, or of later complication, without mention of misadventure at the time of the procedure

== ENCOUNTER 2018-06-30 07:50 | Outpatient (CLI) | payer MEDICAID ==
[2018-06-30] MEDS ORDERED: XYLOCAINE TOPICAL 2% 30ML TP ONE (08:30)
== END 2018-06-30 07:51 | disposition home or self-care (01) ==
LOC: WOUND 07:50
PROVIDERS: ATTEND Surgery
DX: T81.31XD Disruption of external operation (surgical) wound, not elsewhere classified, subsequent encounter (principal); Z87.891 Personal history of nicotine dependence; Y83.8 Other surgical procedures as the cause of abnormal reaction of the patient, or of later complication, without mention of misadventure at the time of the procedure
CPT/HCPCS: 99213; G0463

== ENCOUNTER 2019-08-27 09:14 | Emergency (ER) | payer SELFPAY ==
[2019-08-27 09:53] LABS: Bilirubin,Urine NEG (Negative); Blood,Urine SM (Negative); Color,Urine Yellow (Yellow); Mucus,Urine FEW /HPF; Protein,Urine <15 mg/dL mg/dL (Negative); Urobilinogen,Urine < 2.0 mg/dL (<2.0)
[2019-08-27 10:13] LABS: Basophils % (Auto) 0.5 % (0.0-1.8); Eosinophils # (Auto) 0.1 K/mm3 (0.0-0.4); Eosinophils % (Auto) 1.2 % (0.0-4.3); Hematocrit 36.3 % (30.3-42.9); Hemoglobin 11.6 gm/dl (10.1-14.3); Lymphocytes # (Auto) 2.2 K/mm3 (1.2-5.4); Lymphocytes % (Auto) 34.5 % (13.4-35.0); Mean Corpuscular HGB Conc 32 % (30-34); Mean Corpuscular Volume 79 fl (79-97); Monocytes # (Auto) 0.7 K/mm3 (0.0-0.8); Monocytes % (Auto) 10.7 % (0.0-7.3); Platelet Count 215 K/mm3 (140-440); Red Blood Count 4.61 M/mm3 (3.65-5.03); Red Cell Distribution Width 17.6 % (13.2-15.2)
--- NOTE | 2019-08-27 10:39 | Emergency Department Report ---
ED HPI - General Chief complaint: Vaginal Bleeding Stated complaint: PREG 6WEEKS BLEEDING Time Seen by Provider: 08/27/19 10:16 Source: patient Mode of arrival: Ambulatory Limitations: No Limitations - History of Present Illness Initial comments: 24-year-old female, , currently 6 weeks , presents to ED with vaginal bleeding. Patient had a positive test, currently under the care of [facility]. Patient states she has been having vaginal spotting x3 weeks, however last night the bleeding became a bit heavier. Patient denies any presence of blood clots. Patient states this morning, bleeding has improved, and she is back to spotting. Patient states when she saw her OB, she was told her spotting was likely due to implantation of the fetus. Patient reports mild cramping for several weeks now as well. MD Complaint: vaginal bleeding -: week(s) (3) Location: pelvis Severity: mild Quality: cramping Consistency: constant Improves with: none Worsens with: none Associated symptoms: vaginal bleeding Vaginal bleeding: light :: Yes Number of weeks : 6 Pre-brenda care: followed by OB - Related Data Home Medications Medication Instructions Recorded Confirmed Last Taken Pnv No.95/Ferrous Fum/Folic AC 1 tab PO QDAY 05/20/18 05/20/18 05/19/18 10:00 [ Vitamins Tablet] valACYclovir [Valtrex] 1 tab PO QDAY 05/20/18 05/20/18 05/19/18 10:00 Previous Rx's Medication Instructions Recorded Last Taken Type Ferrous Sulfate [Feosol 325 MG tab] 325 mg PO QDAY #60 tablet 05/24/18 Unknown Rx HYDROcodone/APAP 5-325 [[place] 1 each PO Q6HR PRN #30 tablet 05/24/18 Unknown Rx 5-325 mg TAB] Ibuprofen [Motrin 800 MG tab] 800 mg PO Q6H PRN #30 tablet 05/24/18 Unknown Rx Vit-Fe Fumar-FA [ 1 each PO QDAY #30 tablet 05/24/18 Unknown Rx Vitamin] Allergies Allergy/AdvReac Type Severity Reaction Status Date / Time No Known Allergies Allergy Verified 08/27/19 09:15 ED Review of Systems ROS: Stated complaint: PREG 6WEEKS BLEEDING Other details as noted in HPI Comment: All other systems reviewed and negative Gastrointestinal: abdominal pain Genitourinary: other (Reports vaginal bleeding) ED Past Medical Hx - Past Medical History Hx Hypertension: Yes (PIH) Hx Heart Attack/AMI: No Hx Congestive Heart Failure: Yes Hx Diabetes: No Hx Deep Vein Thrombosis: No Hx Liver Disease: No Hx Renal Disease: No Hx Sickle Cell Disease: No Hx Seizures: No Hx Asthma: No Hx COPD: No Hx HIV: No - Social History Smoking Status: Never Smoker Substance Use Type: None - Medications Home Medications: Home Medications Medication Instructions Recorded Confirmed Last Taken Type Pnv No.95/Ferrous Fum/Folic AC 1 tab PO QDAY 05/20/18 05/20/18 05/19/18 10:00 History [ Vitamins Tablet] valACYclovir [Valtrex] 1 tab PO QDAY 05/20/18 05/20/18 05/19/18 10:00 History Ferrous Sulfate [Feosol 325 MG tab] 325 mg PO QDAY #60 tablet 05/24/18 Unknown Rx HYDROcodone/APAP 5-325 [[place] 1 each PO Q6HR PRN #30 tablet 05/24/18 Unknown Rx 5-325 mg TAB] Ibuprofen [Motrin 800 MG tab] 800 mg PO Q6H PRN #30 tablet 05/24/18 Unknown Rx Vit-Fe Fumar-FA [ 1 each PO QDAY #30 tablet 05/24/18 Unknown Rx Vitamin] ED Physical Exam - General Limitations: No Limitations General appearance: alert, in no apparent distress - Head Head exam: Present: atraumatic, normocephalic - Eye Eye exam: Present: normal appearance - ENT ENT exam: Present: mucous membranes moist - Neck Neck exam: Present: normal inspection - Respiratory Respiratory exam: Present: normal lung sounds bilaterally. Absent: respiratory distress - Cardiovascular Cardiovascular Exam: Present: regular rate, normal rhythm - GI/Abdominal GI/Abdominal exam: Present: soft. Absent: distended, tenderness - Extremities Exam Extremities exam: Present: normal inspection - Neurological Exam Neurological exam: Present: alert, oriented X3 - Psychiatric Psychiatric exam: Present: normal affect, normal mood - Skin Skin exam: Present: warm, dry, intact, normal color ED Course Vital Signs 08/27/19 08/27/19 08/27/19 09:20 10:40 10:45 Temperature 98.1 F Pulse Rate 79 Respiratory 18 Rate Blood Pressure 105/63 Blood Pressure 116/54 [Left] O2 Sat by Pulse 100 100 100 Oximetry 08/27/19 08/27/19 11:00 11:12 Temperature 98.3 F Pulse Rate Respiratory Rate Blood Pressure 107/60 Blood Pressure [Left] O2 Sat by Pulse 100 Oximetry ED Medical Decision Making - Lab Data Result diagrams: 08/27/19 09:36 - Radiology Data Radiology results: report reviewed, image reviewed - Medical Decision Making 24-year-old female with threatened miscarriage. Currently 6 weeks gestational age with heart tones present on ultrasound. No adnexal masses present. Hemoglobin is normal. Vital signs normal. Patient reports bleeding has improved since last night. Will discharge home at this time. Patient advised to follow-up with her OB. Return precautions given. - Differential Diagnosis Miscarriage, threatened miscarriage, ectopic Critical care attestation.: If time is entered above; I have spent that time in minutes in the direct care of this critically ill patient, excluding procedure time. ED Disposition Clinical Impression: 6 weeks gestation of , Threatened miscarriage Disposition: DC-01 TO HOME OR SELFCARE Is pt being admited?: No Condition: Stable Instructions: Threatened Miscarriage (ED) Referrals: PRIMARY CAREMD [Primary Care Provider] - 3-5 Days Time of Disposition: 12:05
[2019-08-27 11:06] VITALS: BP 107/60
--- NOTE | 2019-08-27 12:00 | Ultrasound Report ---
OBSTETRICAL ULTRASOUND. HISTORY: . Vaginal bleeding. FINDINGS: Imaging was formed by transabdominally and endovaginally. The uterus measures 12.4 x 6.6 x 6.1 cm. An early intrauterine is dated 6 weeks 3 days. Fet al heart tones are 116 bpm. Right ovary measures 2.7 x 3.2 x 2.5 cm. Left ovary measures 2.1 x 1.8 x 1.6 cm. Negative for adnexal mass, fluid or suspicious lesion. IMPRESSION: Early intrauterine dated 6 weeks 3 days. Signer Name: Iggy Griffin MD Signed: 08/27/2019 11:56 AM Workstation Name: [id number]
== END 2019-08-27 12:39 | disposition home or self-care (01) ==
LOC: ED 09:14
DX: O20.0 Threatened abortion (principal); I11.0 Hypertensive heart disease with heart failure; I50.9 Heart failure, unspecified; Z3A.01 Less than 8 weeks gestation of pregnancy; Z79.1 Long term (current) use of non-steroidal anti-inflammatories (NSAID); Z79.899 Other long term (current) drug therapy
CPT/HCPCS: 36415; 76801; 76817; 81001; 84702; 85025; 86900; 86901